=== PATIENT | male | born 1955 | race Hispanic/Latino ===

== ENCOUNTER 2019-07-23 18:54 | Inpatient (IN) | payer MEDICARE ==
[2019-07-23 20:17] LABS: AMYLASE 114 U/L (25-115); CREATINE KINASE, TOTAL 48 U/L (21-232); LIPASE 97 U/L (114-286)
[2019-07-23 20:36] LABS: BASOPHILS % (AUTO) 0.1 % (0.0-5.0); HEMATOCRIT 32.2 % (42-54); LYMPHOCYTES % (AUTO) 8.6 % (21.0-51.0); MEAN CORPUSCULAR HEMOGLOBIN 26.5 pg (27.0-33.0); MEAN CORPUSCULAR HGB CONC 29.2 g/dL (32.0-36.0); MEAN CORPUSCULAR VOLUME 90.7 fL (79-99); PLATELET COUNT (AUTO) 223 K/uL (130-400); RED BLOOD CELL COUNT(AUTO) 3.55 MIL/uL (4.50-6.20); RED CELL DISTRIBUTION WIDTH 17.5 % (11.0-15.5); WHITE BLOOD COUNT (AUTO) 6.9 K/uL (4.8-10.8)
[2019-07-23 20:41] LABS: INR 1.01 (0.85-1.15); PARTIAL THROMBOPLASTIN TIME 35.5 SEC (26.3-35.5); PROTHROMBIN TIME 10.9 SEC (9.6-11.6)
[2019-07-23 20:44] LABS: CREATININE 1.7 mg/dL (0.5-1.5); POTASSIUM 4.7 mmol/L (3.5-5.1)
[2019-07-23 20:50] LABS: ALBUMIN 2.1 g/dL (3.5-5.0); BILIRUBIN,DIRECT 0.1 mg/dL (0.0-0.3); BILIRUBIN,TOTAL 0.2 mg/dL (0.2-1.0); TOTAL PROTEIN, SERUM 6.7 g/dL (6.0-8.3)
[2019-07-23] MEDS ORDERED: MORPHINE SULFATE 2 MG/ML 1ML SYG ONE (22:54)
[2019-07-23] MEDS ORDERED: ONDANSETRON HCL 4 MG/2 ML VIAL ONE (22:54)
[2019-07-23] MEDS ORDERED: GUAIFENESIN-CODEINE 5 ML SYRUP ONE (23:26)
[2019-07-24 00:52] LABS: APPEARANCE,URINE Clear (CLEAR); BILIRUBIN,URINE Negative (NEGATIVE); COLOR,URINE Yellow (YELLOW); GLUCOSE, URINE (UA) Negative (NEGATIVE); KETONES,URINE Negative (NEGATIVE); LEUKOCYTE ESTERASE ,URINE Negative (NEGATIVE); NITRATE,URINE Negative (NEGATIVE); OCCULT BLOOD,URINE Negative (NEGATIVE); PH,URINE 6.5 (5.0-8.0); PROTEIN,URINE Negative (NEGATIVE); UROBILINOGEN,URINE 0.2 mg/dL (0.2-1.0)
[2019-07-24 03:00] VITALS: BP 123/82
--- NOTE | 2019-07-24 03:15 | NUR ---
ARRIVED VIA STRETCHER. PT AWAKE. RIGHT SIDED WEAKNESS/FLACCID D/T STROKE IN THE PAST. UNKNOWN OF DATE OF STROKE. PT IS COMING FROM [facility], WAS POSITIVE BEFORE AT [facility]. PT MOVES LEFT UPPER AND LOWER EXTREMITY. DENIES PAIN AT THIS TIME. BED TO LOWEST LEVEL. SEIZURE PADS APPLIED TO SIDE RAILS, SIDE RAILS UP AND BED LOCKED. CALL LIGHT WITHIN REACH ON PTS LEFT SIDE.
[2019-07-24] MEDS ORDERED: AMLO5TAB4 PO (05:01)
[2019-07-24] MEDS ORDERED: LEVE-43 PO (05:02)
[2019-07-24] MEDS ORDERED: TAMS-1 PO (05:03)
[2019-07-24] MEDS ORDERED: FURO20TA6 PO (05:04)
[2019-07-24] MEDS ORDERED: SPIR50TA5 PO (05:05)
[2019-07-24] MEDS ORDERED: GUAI-1447 PO (05:06)
[2019-07-24] MEDS ORDERED: LACT10SO PO (05:07)
[2019-07-24] MEDS ORDERED: ASCO500C6 PO (05:07)
[2019-07-24] MEDS ORDERED: LAMO25TA9 PO (05:09)
[2019-07-24] MEDS ORDERED: FINA5TAB41 PO (05:09)
[2019-07-24] MEDS ORDERED: MELA1TAB17 PO (05:10)
[2019-07-24] MEDS ORDERED: PANT40TA25 PO (05:10)
[2019-07-24] MEDS ORDERED: ATOR20TA PO (05:11)
[2019-07-24] MEDS ORDERED: GABA-529 PO (05:11)
[2019-07-24] MEDS ORDERED: TIZA4CAP8 PO (05:12)
[2019-07-24] MEDS ORDERED: SERT25TA PO (05:12)
[2019-07-24] MEDS ORDERED: SIME80TA12 PO (05:13)
[2019-07-24] MEDS: MORPHINE SULFATE 2 MG/ML 1ML SYG IVP PRN ×2 (06:30→15:29)
[2019-07-24 07:20] LABS: CREATININE 1.5 mg/dL (0.5-1.5); POTASSIUM 4.7 mmol/L (3.5-5.1)
[2019-07-24 07:33] LABS: ALBUMIN 1.8 g/dL (3.5-5.0); BILIRUBIN,DIRECT 0.1 mg/dL (0.0-0.3); BILIRUBIN,TOTAL 0.3 mg/dL (0.2-1.0); TOTAL PROTEIN, SERUM 5.7 g/dL (6.0-8.3)
[2019-07-24 08:00] VITALS: BP 117/81
[2019-07-24] MEDS: FAMOTIDINE/PF 20 MG/2 ML VIAL IV SCH ×2 (08:58→21:28)
[2019-07-24] MEDS: GUAIFENESIN-CODEINE 5 ML SYRUP PO PRN ×3 (08:59→21:28)
--- NOTE | 2019-07-24 09:15 | NUR ---
REPOSITIONED FOR COMFORT. CALL LIGHT PLACED IN PT.'S HAND, VERBALIZED ABILITY TO USE. BED LOW, SIDE RAILS UP.
[2019-07-24 12:00] VITALS: BP 125/81
[2019-07-24] MEDS ORDERED: ACETAMINOPHEN 325 MG TAB PO PRN (12:30)
[2019-07-24 13:47] LABS: CRP QUANTITATIVE 105.2 mg/L (0.00-9.0)
[2019-07-24] MEDS: AZITHROMYCIN 500MG+NS 250ML 250 ML IV SCH (14:35)
[2019-07-24 15:00] VITALS: BP 121/67
--- NOTE | 2019-07-24 17:02 | NUR ---
NOTIFIED DR. BARILLAS RE:CONSULT. NO ORDERS RECEIVED AT THIS TIME.
--- NOTE | 2019-07-24 18:20 | NUR ---
REPOSITIONED FOR COMFORT PER PT. REQUEST. PILLOWS PLACED REQUESTED BY PT. CALL LIGHT WITHIN REACH.
[2019-07-24 20:35] VITALS: BP 122/87
[2019-07-25 00:25] VITALS: BP 124/86
[2019-07-25] MEDS: MORPHINE SULFATE 2 MG/ML 1ML SYG IVP PRN ×2 (03:30→14:27)
[2019-07-25] MEDS: GUAIFENESIN-CODEINE 5 ML SYRUP PO PRN ×3 (03:30→16:50)
[2019-07-25 03:54] VITALS: BP 127/81
[2019-07-25 06:10] LABS: BASOPHILS % (AUTO) 0.4 % (0.0-5.0); EOSINOPHILS % (AUTO) 0.7 % (0.0-8.0); HEMATOCRIT 29.9 % (42-54); MEAN CORPUSCULAR HEMOGLOBIN 26.4 pg (27.0-33.0); MEAN CORPUSCULAR HGB CONC 28.8 g/dL (32.0-36.0); MEAN CORPUSCULAR VOLUME 91.7 fL (79-99); MONOCYTES % (AUTO) 11.4 % (3.0-13.0); NEUTROPHILS % (AUTO) 79.1 % (40.0-77.0); PLATELET COUNT (AUTO) 205 K/uL (130-400); RED BLOOD CELL COUNT(AUTO) 3.26 MIL/uL (4.50-6.20); RED CELL DISTRIBUTION WIDTH 17.6 % (11.0-15.5); WHITE BLOOD COUNT (AUTO) 5.4 K/uL (4.8-10.8)
[2019-07-25 06:34] LABS: ALBUMIN 1.9 g/dL (3.5-5.0); BILIRUBIN,TOTAL 0.4 mg/dL (0.2-1.0); CREATININE 1.4 mg/dL (0.5-1.5); POTASSIUM 5.4 mmol/L (3.5-5.1); TOTAL PROTEIN, SERUM 6.2 g/dL (6.0-8.3)
[2019-07-25 08:21] VITALS: BP 130/77
[2019-07-25] MEDS: CEFTRIAXONE SODIUM 1 GM IVP SCH (08:52)
[2019-07-25] MEDS: FAMOTIDINE/PF 20 MG/2 ML VIAL IV SCH ×2 (08:52→20:34)
[2019-07-25] MEDS: FUROSEMIDE 10 MG/ML 4ML VIAL IV SCH ×2 (10:28→20:35)
[2019-07-25] MEDS: HYDROCODONE/ACETAMINOPHEN 5/325 MG TAB PO PRN ×2 (10:29→16:51)
[2019-07-25 12:08] VITALS: BP 123/83
[2019-07-25] MEDS: AZITHROMYCIN 500MG+NS 250ML 250 ML IV SCH (13:14)
--- NOTE | 2019-07-25 15:19 | NUR ---
ROSEANNA ZHOU FROM [facility] SAID THAT PATIENT IS A CUSTODIAL RESIDENT. PLAN IS TO RETURN TO FACILITY. PENDING US BRIE CARTWRIGHT PENDING GI CONSULT. Addendum: 07/25/19 at 1521 by WILIAM BUENO RN CM Amended: Links added.
[2019-07-25 16:06] VITALS: BP 119/64
[2019-07-25 20:28] VITALS: BP 125/77
[2019-07-25] MEDS: SPIRONOLACTONE 25 MG TAB PO SCH (20:34)
[2019-07-26] VITALS (7 sets, daily range): BP systolic 108–147; BP diastolic 72–99
[2019-07-26] MEDS: GUAIFENESIN-CODEINE 5 ML SYRUP PO PRN ×3 (00:26→20:21)
[2019-07-26] MEDS: HYDROCODONE/ACETAMINOPHEN 5/325 MG TAB PO PRN ×2 (00:26→09:37)
[2019-07-26 06:22] LABS: BASOPHILS % (AUTO) 0.2 % (0.0-5.0); HEMATOCRIT 28.3 % (42-54); LYMPHOCYTES % (AUTO) 8.6 % (21.0-51.0); MEAN CORPUSCULAR HEMOGLOBIN 26.8 pg (27.0-33.0); MEAN CORPUSCULAR HGB CONC 29.7 g/dL (32.0-36.0); MEAN CORPUSCULAR VOLUME 90.1 fL (79-99); MONOCYTES % (AUTO) 12.7 % (3.0-13.0); NEUTROPHILS % (AUTO) 77.2 % (40.0-77.0); PLATELET COUNT (AUTO) 235 K/uL (130-400); RED BLOOD CELL COUNT(AUTO) 3.14 MIL/uL (4.50-6.20); RED CELL DISTRIBUTION WIDTH 17.5 % (11.0-15.5); WHITE BLOOD COUNT (AUTO) 5.9 K/uL (4.8-10.8)
[2019-07-26 06:41] LABS: ALBUMIN 1.9 g/dL (3.5-5.0); BILIRUBIN,TOTAL 0.3 mg/dL (0.2-1.0); CREATININE 1.6 mg/dL (0.5-1.5); POTASSIUM 4.8 mmol/L (3.5-5.1)
[2019-07-26] MEDS: SPIRONOLACTONE 25 MG TAB PO SCH ×2 (08:58→20:21)
[2019-07-26] MEDS: FUROSEMIDE 10 MG/ML 4ML VIAL IV SCH ×2 (08:58→20:21)
[2019-07-26] MEDS: CEFTRIAXONE SODIUM 1 GM IVP SCH (08:58)
[2019-07-26] MEDS: FAMOTIDINE/PF 20 MG/2 ML VIAL IV SCH ×2 (08:59→20:21)
--- NOTE | 2019-07-26 11:03 | NUR ---
DC PLAN PATIENT IN COVID UNIT ISOLATION. CHECKED ORIENTED ACCORDING TO NURSES NOTES. CALLED PHONE NO ANSWER. CORBIN FROM [facility] CALLED SAID PATIENT IS A NURSING HOME RESIDENT. PNDG US ABD POSSIBLE PARACENTESIS. CM WILL CONTINUE TO FOLLOW. Addendum: 07/26/19 at 1106 by WILIAM BUENO RN CM Amended: Links added.
[2019-07-26] MEDS: AZITHROMYCIN 500MG+NS 250ML 250 ML IV SCH (13:09)
--- NOTE | 2019-07-26 16:00 | NUR ---
DC PLAN SPOKE TO UPPER SHAPER SAID PATIENT SPEAKS VERY LITTLE. USES SIGNS MAINLY. CAN NOT GO INTO PATIENT ROOM POSITIVE COVID 19. CALLED DAUGHTER MOHINI WYATT NO ANSWER LEFT MESSAGE FOR CALL BACK. NEED VIOLA FOR [facility] AND TO CONFIRM PATIENT IS A NURSING HOME RESIDENT. Addendum: 07/26/19 at 1602 by WILIAM BUENO RN CM Amended: Links added.
--- NOTE | 2019-07-26 16:49 | NUR ---
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 PLAN IS TO RETURN ONCE STABLE. VERBAL VIOLA GIVEN. PATIENT. SAID HE USED A WHEEL CHAIR AT THE FACILITY. SURPRISED PATIENT IS IN THE COVID UNIT. SAID THAT PATIENT WAS GETTING RETESTED TO SEE IF NEGATIVE. STILL PENDING PARACENTESIS AT THIS TIME. Addendum: 07/26/19 at 1651 by WILIAM BUENO RN CM Amended: Links added.
[2019-07-26] MEDS: MORPHINE SULFATE 2 MG/ML 1ML SYG IVP PRN (20:21)
[2019-07-27 04:07] VITALS: BP 122/83
[2019-07-27 05:42] LABS: BASOPHILS % (AUTO) 0.4 % (0.0-5.0); EOSINOPHILS % (AUTO) 0.5 % (0.0-8.0); HEMATOCRIT 28.1 % (42-54); LYMPHOCYTES % (AUTO) 10.3 % (21.0-51.0); MEAN CORPUSCULAR HEMOGLOBIN 26.9 pg (27.0-33.0); MEAN CORPUSCULAR HGB CONC 29.9 g/dL (32.0-36.0); MEAN CORPUSCULAR VOLUME 90.1 fL (79-99); MONOCYTES % (AUTO) 14.3 % (3.0-13.0); NEUTROPHILS % (AUTO) 74.5 % (40.0-77.0); PLATELET COUNT (AUTO) 253 K/uL (130-400); RED BLOOD CELL COUNT(AUTO) 3.12 MIL/uL (4.50-6.20); RED CELL DISTRIBUTION WIDTH 17.5 % (11.0-15.5); WHITE BLOOD COUNT (AUTO) 5.5 K/uL (4.8-10.8)
[2019-07-27 06:05] LABS: ALBUMIN 1.9 g/dL (3.5-5.0); BILIRUBIN,TOTAL 0.3 mg/dL (0.2-1.0); CREATININE 1.3 mg/dL (0.5-1.5); POTASSIUM 4.5 mmol/L (3.5-5.1); TOTAL PROTEIN, SERUM 6.1 g/dL (6.0-8.3)
--- NOTE | 2019-07-27 07:45 | NUR ---
ASSESSMENT ENCOUNTERED PT AWAKE BUT ONLY ABLE TO ANSWER WITH YES AND NO QUESTIONS. PT DOES NOT APPEAR TO BE IN ANY DISTRESS. PT DOES HAVE DISTENDED ABDOMEN THAT IS TENDER TO TOUCH. PT IS ABLE TO VOID IN TO DIAPER, ASSISTS WITH TURNING FOR DIAPER CHANGES. WHEN ATTEMPTING TO AUSCULTATE PATIENT INTERRUPTS BY YELLING "NO" AND MOVES STETHOSCOPE, REMINDED PATIENT THAT IT IS NECESSARY AND PATIENT RESPONDED WITH "CHINGADO" AND LET THE ASSESSMENT CONTINUE. PT IS NPO UNTIL SEEN BY DAIRY FARMER FOR POSSIBLE BEDSIDE PARACENTESIS.
[2019-07-27 07:50] VITALS: BP 157/78
[2019-07-27] MEDS: CEFTRIAXONE SODIUM 1 GM IVP SCH (08:50)
[2019-07-27] MEDS: FAMOTIDINE/PF 20 MG/2 ML VIAL IV SCH ×2 (08:50→20:25)
[2019-07-27] MEDS: SPIRONOLACTONE 25 MG TAB PO SCH ×2 (08:50→20:25)
[2019-07-27] MEDS: FUROSEMIDE 10 MG/ML 4ML VIAL IV SCH ×2 (08:50→21:45)
[2019-07-27] MEDS: AZITHROMYCIN 500MG+NS 250ML 250 ML IV SCH (08:51)
[2019-07-27 11:30] VITALS: BP 137/86
[2019-07-27 11:46] VITALS: BP 137/86
--- NOTE | 2019-07-27 15:00 | NUR ---
DR CHEW AT BEDSIDE UPDATE GIVEN AND DR CHEW STATED TO MAKE ANOTHER ATTEMPT FOR I.R. TO PERFORM PARACENTESIS AT BEDSIDE.
[2019-07-27 16:00] VITALS: BP 130/85
--- NOTE | 2019-07-27 16:00 | NUR ---
PT SOILED PT IS ABLE TO ASSIST BY TURNING TO SIDE FOR DIAPER AND LINEN CHANGE DUE TO URINATION. TOLERATING WELL, CALL LIGHT WITHIN REACH, BED ALARM ACTIVATED
--- NOTE | 2019-07-27 19:00 | NUR ---
BLADDER SCANNER >1000ML DISPLAYED ON BLADDER SCANNER, DR SAGASTUME AT BEDSIDE, UPDATE GIVEN, ORDERS RECEIVED.
--- NOTE | 2019-07-27 19:15 | NUR ---
REFUSAL OF CORDERO/COMBATIVENESS PT PUNCHING AND BREAKING STERILE FIELD BY PLACING HAND ON PENIS AFTER PREPPING COMPLETED. PT YELLING AND SCREAMING "NO". DR SAGASTUME UPDATED. PT INFORMED OF RISKS OF REFUSAL THAT INCLUDED, BUT NOT LIMITED TO, BLADDER RUPTURE, UROSEPSIS, SEPTIC SHOCK, MYOCARDIAL INFARCTION, STROKE AND . DAUGHTER MOHINI ON [address] WAY SPEAKER PHONE WITH FATHER AND PATIENT STILL REFUSES TO DAUGHTER ABOUT CORDERO PLACEMENT, DAUGHTER MADE AWARE OF RISKS BY DR SAGASTUME.
--- NOTE | 2019-07-27 19:20 | NUR ---
IN PTS ROOM WITH DAUGHTERS (PRISCILLA ON PHONE) PT REFUSING TO SPEAK TO DAUGHTERS. PATIENT IS YELLING "NO" AND PUSHES MY HAND AWAY WHEN I ATTEMPT TO PLACE PHONE TO HIS EAR. DAUGHTERS AWARE. DAUGHTERS ALSO AWARE OF PATIENT REFUSING CORDERO AND VITALS TO BE TAKEN. WILL RELAY REQUEST TO DAY NURSE TO CONTACT ADMINISTRATION FOR DAUGHTER TO GET PERMISSION TO VISIT PATIENT. DAUGHTERS ASKED ME TO BRIBE THE PATIENT WITH A MILKSHAKE OR OTHER SWEETS. I INFORMED DAUGHTERS WE DO NOT "BRIBE" PATIENTS BUT PROVIDE MEDICAL TREATMENT NEEDED FOR PATIENT.
--- NOTE | 2019-07-27 19:45 | NUR ---
PATIENT WAS PROVIDED WITH HIS OPTIONS FOR MEDICAL TREATMENT. CORDERO IS STILL BEING REFUSED AT THIS TIME. YELLS "NO", POINTS AT HIS GENITAL AREA AND YELLS "NO". INFORMED PATIENT ABOUT THE POSSIBILITIES OF A FULL BLADDER, AND THAT HIS BLADDER CAN RUPTURE AT ANY MOMENT. EDUCATED PATIENT THAT HE CAN GO INTO SEPTIC SHOCK, HEART FAILURE, AND ANY OF THESE SITUATIONS CAN BE LIFE THREATENING. PT YELLS "CHINGADO" AND "NO". PATIENT WAS EDUCATED ABOUT THE POSSIBILITY OF BECOMING SHORT OF BREATH DUE TO THE AMOUNT OF FLUID RETENTION AND IF HE BECOMES WORSE WHICH MAY RESULT IN POSSIBLE INTUBATION WITH THE NEED FOR LIFE SUSTAINING INTERVENTIONS. PT REPEATEDLY SAYS "NO". EXPLAINED THE OPTION OF DNR AND THE PATIENT DECIDED TO SIGN DNR SHEET AT THIS TIME.
[2019-07-27 23:39] VITALS: BP 143/95
--- NOTE | 2019-07-27 23:40 | NUR ---
PT REMOVED TELE MONITOR FROM SELF. PCP, DIVINA, ASSISTED IN REPLACING ELECTRODES AND LEADS FOR THE TELE PACK BUT PT REFUSES. DIVINA, PCP NOTIFIED TELE MONITOR OLIVIA.
[2019-07-28] MEDS: MORPHINE SULFATE 2 MG/ML 1ML SYG IVP PRN (04:17)
[2019-07-28] MEDS: GUAIFENESIN-CODEINE 5 ML SYRUP PO PRN (04:17)
--- NOTE | 2019-07-28 04:40 | NUR ---
CHANGED PTS BRIEF. BRIEF WITH HEAVY AMOUNT OF URINE AND MEDIUM SOFT FORMED BOWEL MOVEMENT. PT STILL REFUSES TO HAVE TELE PACK ON HIM. VITALS WERE TAKEN WITH AUTOMATIC BP MACHINE. REPOSITIONED PATIENT. BED TO LOWEST LEVEL. CALL LIGHT WITHIN REACH. LIGHT IS LEFT ON REQUESTED BY PATIENT.
[2019-07-28 04:50] VITALS: BP 145/97
--- NOTE | 2019-07-28 07:50 | NUR ---
PT REFUSING ASSESSMENT, VITAL SIGNS, TELE MONITORING PT BECOMES PHYSICALLY AGGRESSIVE WITH LEFT HAND WITH PUNCHES AND PUSHES WHEN ATTEMPTING TO ASSESS, PERFORM VITAL SIGNS OR PLACE TELEPACK, BUT IS COOPERATIVE WHEN DIAPER NEEDS TO BE CHANGED. PT IS ABLE TO ANSWER YES/NO QUESTIONS ONLY. PT CONTINUES TO HAVE ABDOMINAL DISTENTION WITH TENDERNESS TO TOUCH BUT, AGAIN, WHEN ASKED ABOUT CORDERO INSERTION FOR RELIEF, PT IMMEDIATELY YELLS "NO" AND "CHINGADO". PT RESPONDS CALMLY WITH A DIFFERENT QUESTION WHEN ASKED ABOUT A HANSEN WITH A LANYARD NEXT TO TV THAT BELONGS TO HIM AND HE RESPONDED WITH "YES". PT THEN POINTS TO ME AND POINTS TO THE DOOR. WHEN I ASK HIM IF THAT MEANS THAT I SHOULD LEAVE, PT RESPONDS WITH "YES". CALL LIGHT WITHIN REACH, BED ALARM ACTIVATED.
[2019-07-28] MEDS: SPIRONOLACTONE 25 MG TAB PO SCH (09:00)
[2019-07-28] MEDS ORDERED: TAMSULOSIN HCL 0.4 MG CAP.ER.24H PO SCH (09:00)
[2019-07-28] MEDS: FAMOTIDINE/PF 20 MG/2 ML VIAL IV SCH (09:00)
[2019-07-28] MEDS: CEFTRIAXONE SODIUM 1 GM IVP SCH (09:00)
--- NOTE | 2019-07-28 09:00 | NUR ---
REFUSING MEDS PT REFUSING IV ANTIBIOTICS, MEDS FOR PROSTATE. INFORMED PT OF RISKS OF NONCOMPLIANCE AND PATIENT RESPONDED REPEATEDLY "NO" AND "CHINGADO". BUT WHEN EXPLAINED TO CALL ME FOR DIAPER CHANGE, HE RESPONDED SOFTLY WITH A "YES". CALL LIGHT WITHIN REACH.
[2019-07-28] MEDS: FUROSEMIDE 10 MG/ML 4ML VIAL IV SCH (09:45)
[2019-07-28] MEDS: AZITHROMYCIN 500MG+NS 250ML 250 ML IV SCH (13:15)
--- NOTE | 2019-07-28 15:13 | NUR ---
DC PLAN SPOKE TO TRENT COOL SAID OKAY FOR PATIENT TO RETURN. FDC RESIDENT OF [facility]. EMS SET UP PATIENT BEDBOUND CONFUSED. LET NURSE KNOW. Addendum: 07/28/19 at 1514 by WILIAM BUENO RN CM Amended: Links added.
== END 2019-07-28 19:30 | DRG 177 ==
LOC: EDH 18:54 → EDHIP 07-24 01:26 → 2DH 07-24 02:52
PROVIDERS: ADMIT Internal Medicine; ATTEND Internal Medicine
DX: U07.1 COVID-19 (principal); E43 Unspecified severe protein-calorie malnutrition; J96.91 Respiratory failure, unspecified with hypoxia; J12.89 Other viral pneumonia; I69.351 Hemiplegia and hemiparesis following cerebral infarction affecting right dominant side; J98.11 Atelectasis; G40.909 Epilepsy, unspecified, not intractable, without status epilepticus; K70.31 Alcoholic cirrhosis of liver with ascites; N19 Unspecified kidney failure; D64.9 Anemia, unspecified; D69.6 Thrombocytopenia, unspecified; E11.9 Type 2 diabetes mellitus without complications; E78.5 Hyperlipidemia, unspecified; R53.81 Other malaise; E87.5 Hyperkalemia; E87.6 Hypokalemia; F41.9 Anxiety disorder, unspecified; R32 Unspecified urinary incontinence; I10 Essential (primary) hypertension; I69.320 Aphasia following cerebral infarction; Z74.01 Bed confinement status; Z88.8 Allergy status to other drugs, medicaments and biological substances
CPT/HCPCS: 36415; 71045; 74018; 80048; 80053; 80076; 81003; 82150; 82550; 82728; 83690; 84145; 84484; 85025; 85610; 85651; 85730; 86140; 87635; 93005; A4344; G0378; J0456; J0696; J1940; J2405; J3490

== ENCOUNTER → 2019-08-26 | Outpatient (CLI) | payer MEDICARE ==
[~2019-08-26] MED LIST: ALBUMIN (HUMAN) 25% 200 ML IV SCH; AMLO5TAB4 PO; ASCO500C6 PO; ATOR20TA PO; FINA5TAB41 PO; FURO20TA6 PO; GABA-529 PO; GUAI-1447 PO; LACT10SO PO; LAMO25TA9 PO; LEVE-43 PO; MELA1TAB17 PO; PANT40TA25 PO; SERT25TA PO; SIME80TA12 PO; SPIR50TA5 PO; TAMS-1 PO; TIZA4CAP8 PO
== END | disposition home or self-care (01) ==
LOC: RAH 10:00
PROVIDERS: ATTEND Internal Medicine Gastroenterology
DX: K74.60 Unspecified cirrhosis of liver (principal); Z20.828 Contact with and (suspected) exposure to other viral communicable diseases
CPT/HCPCS: 36415; P9046; U0003